=== PATIENT | male | born 1980 | race Caucasian/White ===

== ENCOUNTER 2020-06-11 11:15 | Emergency (ER) | payer OTHER, SELFPAY ==
--- NOTE | ~2020-06-11 | CT_ITS ---
EXAMINATION: CT facial bones wo con DATE: 06/11/2020 13:08 INDICATION: Right periorbital injury and pain. TECHNIQUE: Computed tomography (CT) of the facial bones and maxillofacial region was performed withou t intravenous contrast. Automated exposure control and iterative reconstruction technique were employ ed. The dose-length product was 488.04 mGy-cm. COMPARISON: None. FINDINGS: There are blowout fractures of medial wall and floor of right orbit. There is mucosal thick ening in the paranasal sinuses. There is hematoma in right maxillary sinus. There is rightward deviat ion of the nasal septum. There is soft tissue gas in the extraconal right orbit, right periorbital re gion, right lateral scalp, right cheek, and right neck. There is mild cervical spondylosis. IMPRESSION: 1. Fractures of medial wall and floor of right orbit. 2. Soft tissue gas in the right face and neck. Reviewed, dictated and finalized at location A.
[2020-06-11 11:30] VITALS: BP 147/71; PULSE 82; RESP 14; TEMP 36.3; O2SAT 99
--- NOTE | 2020-06-11 13:50 | ED.GENADULT ---
HPI - General Adult General Chief complaint: Head Injury Stated complaint: facial/eye injury Time Seen by Provider: 06/11/20 11:34 Source: patient Mode of arrival: ambulatory Limitations: no limitations History of Present Illness HPI narrative: Patient presents with chief complaint of bruising and swelling and discomfort to the right after being hit by a softball on Thursday. Patient denies loss of consciousness. Patient denies loss of vision, photophobia, ocular drainage or bleeding. Patient does report bruising to the eye as well as the eyelid and the right cheek. Patient states that he came to the emergency department at the request of his . Patient denies any other symptoms or concerns. Related Data Allergies Allergy/AdvReac Type Severity Reaction Status Date / Time No Known Allergies Allergy Verified 06/11/20 11:29 Review of Systems Review of Systems: Narrative: CONSTITUTIONAL: Denies fever, chills, or sweats. EYES: Reports redness, swelling and pain denies visual changes or discharge. ENT: Denies rhinorrhea, congestion, sore throat, or otalgia. CARDIOVASCULAR: Denies chest pain, palpitations, or edema. RESPIRATORY: Denies cough or dyspnea. GASTROINTESTINAL: Denies abdominal pain, nausea, vomiting, or diarrhea. GENITOURINARY: Denies dysuria or hematuria. SKIN: Denies rash or itching. MUSCULOSKELETAL: Denies back pain, myalgia, or joint pain NEUROLOGIC: Denies loss of consciousness, headache, numbness, dizziness, or weakness. PSYCHIATRIC: Denies anxiety or depression. Exam Narrative: Exam Narrative: GENERAL: Well-appearing, well-nourished. HEAD: Normocephalic, atraumatic. EYES: PERRLA and EOMI. No signs of entrapment to right eye- full ocular motion. There is bruising to upper and lower eyelid with swelling. subconjunctival hemorrhage to right side eye. Swelling and ecchymosis appreciated to the upper eyelid and the laceration is just his right eye. Patient able to open and close eyes. Fluorescein stain no abrasion noted. ENT: Nares clear, no rhinorrhea or epistaxis. Mucous membranes moist. Oropharynx without tonsillar hypertrophy exudate or other lesions. Bilateral TMs pearly quach nonbulging NECK: Supple. No adenopathy or masses. No vertebral tenderness or loss of ROM. CHEST: Clear to auscultation. No respiratory distress. No wheezes rales or rhonchi HEART: Regular rate and rhythm. EXTREMITIES: No acute changes in ROM. No edema. SKIN: Warm, dry, no rash. NEURO: No focal deficits. Alert and oriented x3. PSYCH: Normal mood and affect. Course Vital Signs Vital signs: Vital Signs Temperature 97.3 F L 06/11/20 11:30 Pulse Rate 82 06/11/20 11:30 Respiratory Rate 14 06/11/20 11:30 Blood Pressure 147/71 H 06/11/20 11:30 Pulse Oximetry 99 06/11/20 11:30 Temperature 97.3 F L 06/11/20 11:30 Pulse Rate 78 06/11/20 15:24 Respiratory Rate 20 06/11/20 15:24 Blood Pressure 132/70 06/11/20 15:24 Pulse Oximetry 99 06/11/20 15:24 Medical Decision Making MDM Narrative Medical decision making narrative: Dr nicolas- Opthalmology states that since the patient has full ROM of the eye without double vision, vomiting, loss of vision he can follow up with is eye doctor or call [facility]. She states no abx drops unless corneal abrasion noted. & Dr Ureña-ENT states patient should not blow his nose for weeks and should use lots of saline nasal spray. Follow up in his office. No abx needed. Patient states his vision is still stable, not double vision, not complaining of severe pain. He declines pain medication. 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 Patient admitted to wearing CPAP at night which eplains why he has so much air/gas in the sinus space. He must discontinue per ENT for weeks to prevent complication. Instructions on Optho and ENT follow up discussed to patient
[2020-06-11 15:24] VITALS: BP 132/70; PULSE 78; RESP 20; O2SAT 99
== END 2020-06-11 15:25 | disposition home or self-care (01) ==
PROVIDERS: Emergency Provider Emergency Medicine
DX: S02.31XA Fracture of orbital floor, right side, initial encounter for closed fracture (principal); S02.831A Fracture of medial orbital wall, right side, initial encounter for closed fracture; W21.07XA Struck by softball, initial encounter; Y93.64 Activity, baseball
CPT/HCPCS: 70486; 99284

== ENCOUNTER 2021-04-15 11:36 | Emergency (ER) | payer OTHER, SELFPAY ==
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
[2021-04-15 11:39] VITALS: BP 144/86; PULSE 67; RESP 18; TEMP 36.8; O2SAT 100
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
[2021-04-15 16:00] VITALS: BP 138/80; PULSE 64; RESP 18; O2SAT 100
== END 2021-04-15 16:00 | disposition home or self-care (01) ==
PROVIDERS: Emergency Provider Emergency Medicine; PCP Internal Medicine
DX: S39.012A Strain of muscle, fascia and tendon of lower back, initial encounter (principal); K21.9 Gastro-esophageal reflux disease without esophagitis; V49.40XA Driver injured in collision with unspecified motor vehicles in traffic accident, initial encounter
CPT/HCPCS: 72131; 99284

== ENCOUNTER 2022-09-27 09:45 | Emergency (ER) | payer OTHER, SELFPAY ==
[2022-09-27 09:55] VITALS: BP 139/87; PULSE 70; RESP 18; TEMP 36.9; O2SAT 98
--- NOTE | 2022-09-27 09:57 | ED.EAR ---
HPI - Ear Problem General Chief complaint: Ear Stated complaint: Left ear Time Seen by Provider: 09/27/22 10:12 History of Present Illness HPI Narrative: LEFT EAR PAIN NO DRAINAGE NO URI NO FEVER PATIENT FEELS THAT HE GOT DIRT IN HIS EAR LAST WEEK AND HAS HAD DISCOMFORT TO EAR SINCE THEN Related Data Allergies Allergy/AdvReac Type Severity Reaction Status Date / Time No Known Allergies Allergy Verified 09/27/22 09:56 Review of Systems Review of Systems: CONSTITUTIONAL: DENIES FEVER, CHILLS, OR SWEATS. EYES: DENIES VISUAL CHANGES, REDNESS, OR DISCHARGE. ENT: DENIES RHINORRHEA, CONGESTION, SORE THROAT, OR OTALGIA. CARDIOVASCULAR: DENIES CHEST PAIN, PALPITATIONS, OR EDEMA. RESPIRATORY: DENIES COUGH OR DYSPNEA. GASTROINTESTINAL: DENIES ABDOMINAL PAIN, NAUSEA, VOMITING, OR DIARRHEA. GENITOURINARY: DENIES DYSURIA OR HEMATURIA. SKIN: DENIES RASH OR ITCHING. MUSCULOSKELETAL: DENIES BACK PAIN, JOINT PAIN, OR MYALGIA. NEUROLOGIC: DENIES HEADACHE, NUMBNESS, OR WEAKNESS. PSYCHIATRIC: DENIES ANXIETY OR DEPRESSION. [facility] Past Medical History Medical History (Updated 09/27/22 @ 10:14 by RUSSEL Cai) History of gastroesophageal reflux (GERD) Social History Social History (Updated 04/15/21 @ 15:47 by Kelsy Dwyer PA-C) Substance use: never Comments AT TIME OF SIGNATURE, AGREE WITH NURSING PAST MEDICAL, SURGICAL, SOCIAL AND FAMILY HISTORY. THERE IS NO RELEVANT FAMILY HISTORY PERTINENT TO THE PRESENTING COMPLAINT Exam Narrative: GENERAL: WELL-APPEARING, WELL-NOURISHED, AND IN NO ACUTE DISTRESS. HEAD: NORMOCEPHALIC, ATRAUMATIC. EYES: PERRLA AND EOMI. ENT: NARES CLEAR, NO RHINORRHEA OR EPISTAXIS. MUCOUS MEMBRANES MOIST. LEFT EAR CANAL EDEMATOUS WITH LOSS OF LANDMARKS TO LEFT TM RIGHT EAR NORMAL NECK: SUPPLE. CHEST: CLEAR TO AUSCULTATION. NO RESPIRATORY DISTRESS. HEART: REGULAR RATE AND RHYTHM. NO MURMUR HEARD. NORMAL PERIPHERAL PULSES. ABDOMEN: SOFT, NONTENDER, NONDISTENDED, NORMAL ACTIVE BOWEL SOUNDS. EXTREMITIES: NORMAL RANGE OF MOTION. NO EDEMA. SKIN: WARM, DRY, NO RASH. NEURO: NO FOCAL DEFICITS. ALERT AND ORIENTED X3. KAYKAY COMA SCALE EYE OPENING: SPONTANEOUS 4 KAYKAY COMA SCALE MOTOR: OBEYS COMMANDS 6 KAYKAY COMA SCALE VERBAL: ORIENTED 5 KAYKAY COMA SCALE TOTAL 15 Course Course Level of Care: Express Care Visit Vital Signs Vital signs: Vital Signs Temperature 36.9 C 09/27/22 09:55 Pulse Rate 70 09/27/22 09:55 Respiratory Rate 18 09/27/22 09:55 Blood Pressure 139/87 09/27/22 09:55 Pulse Oximetry 98 09/27/22 09:55 Oxygen Delivery Room Air 09/27/22 09:55 Temperature 36.9 C 09/27/22 09:55 Pulse Rate 70 09/27/22 09:55 Respiratory Rate 18 09/27/22 09:55 Blood Pressure 139/87 09/27/22 09:55 Pulse Oximetry 98 09/27/22 09:55 Oxygen Delivery Room Air 09/27/22 09:55 Medical Decision Making Differential Diagnosis Differential Diagnosis: OTITIS MEDIA, OTITIS EXTERNA, EUSTACHIAN TUBE DYSFUNCTION Vital Signs Vital Signs: Vital Signs Temperature 36.9 C 09/27/22 09:55 Pulse Rate 70 09/27/22 09:55 Respiratory Rate 18 09/27/22 09:55 Blood Pressure 139/87 09/27/22 09:55 Pulse Oximetry 98 09/27/22 09:55 Oxygen Delivery Room Air 09/27/22 09:55 Temperature 36.9 C 09/27/22 09:55 Pulse Rate 70 09/27/22 09:55 Respiratory Rate 18 09/27/22 09:55 Blood Pressure 139/87 09/27/22 09:55 Pulse Oximetry 98 09/27/22 09:55 Oxygen Delivery Room Air 09/27/22 09:55 Discharge Plan Discharge Clinical Impression: Otitis media, Otitis externa Patient Disposition: Home, Self-Care Condition: Stable Instructions: Antibiotic Form, Ear Infection (AC) Additional Instructions: MEDICATION PRESCRIBED TYLENOL AND IBUPROFEN NEEDED FOR PAIN OR DISCOMFORT FOLLOW-UP WITH PRIMARY CARE PROVIDER IN 3-4 DAYS FOR RE-EVALUATION IF ANY NEW OR WORSENING SYMPTOMS PLEASE GO TO ER IMMEDIATELY FOR FURTHER EVALUATION TREATMENT
== END 2022-09-27 10:18 | disposition home or self-care (01) ==
PROVIDERS: Emergency Provider Nurse Practitioner Family; PCP Family Medicine
DX: H66.92 Otitis media, unspecified, left ear (principal); H60.92 Unspecified otitis externa, left ear
CPT/HCPCS: 99213; G0463